=== PATIENT | female | born 1950 | race Caucasian/White ===

== ENCOUNTER → 2019-02-17 | Outpatient (CLI) | payer MEDICARE ==
[~2019-02-17] MED LIST: ATORVASTATIN PO; CITALOPRAM PO; IBUPROFEN PO; IOPAMIDOL 370 MG/ML 200 ML INFUS..BTL INJ ONE; MULTI-VITAMIN1 EACH PO; SODIUM CHLORIDE 0.9% 100 ML 100 ML ONE
[2019-02-17 14:34] LABS: BLOOD UREA NITROGEN 16 mg/dL (7-26); BUN/CREATININE RATIO 22 (6-25); CREATININE, SERUM 0.74 mg/dL (0.57-1.11); EST GLOMERULAR FILTRATION RATE > 60 ML/MIN (60-)
--- NOTE | 2019-02-18 11:11 | Diagnostic Imaging Report ---
CTA NECK HISTORY: Carotid stenosis COMPARISON: None. TECHNIQUE: CTA of the neck was performed with intravenous iodine based contrast. Coronal, sagittal, 3-D, and oblique maximum intensity projection reformations were created. One or more of the following dose reduction techniques were used: Automated exposure control, adjustment of the mA and/or kV according to patient size, and/or utilization of iterative reconstruction technique. DISCUSSION: If present, any cervical carotid stenosis will be measured as a percentage relative to the [place] artery distal to the stenosis (NASCET). The innominate artery is mildly tortuous and ectatic, slightly extending into the lower right neck. Right Carotid: Patent, no abnormalities. The right common carotid artery has a paraesophageal course. Left Carotid: Mild proximal left cervical internal carotid artery calcified plaque does not cause significant stenosis. The left common carotid artery has a paraesophageal course. Right vertebral artery: Patent, no abnormalities. Left vertebral artery: Patent, no abnormalities. The intracranial arterial vasculature is partially visualized (to the posterior cerebral artery and proximal ASUNCION/MCA levels). The right vertebral artery terminates as the right posterior inferior cerebellar artery, a normal variant. There is persistent circulation on the left. The right posterior communicating artery is patent. 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 Otherwise, no significant stenosis, large vessel occlusion, or additional aneurysm is seen. The bilateral A1 and M1 segments are patent. Additional findings: There are mild to moderate degenerative changes throughout the spine. IMPRESSION: 1. Mild proximal left cervical internal carotid artery calcified plaque without significant stenosis. 2. Mildly tortuous/ectatic innominate artery slightly extends into the lower right neck. 3. No other cervical CTA abnormalities. 4. 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 Signed by: Dr. Kenton Ibrahim M.D. on 02/18/2019 11:08 AM
== END ==
LOC: CT 13:18
PROVIDERS: ATTEND Internal Medicine
DX: I65.22 Occlusion and stenosis of left carotid artery (principal)
CPT/HCPCS: 36415; 70498; 82565; 84520; Q9967